=== PATIENT | male | born 1995 | race Caucasian/White ===

== ENCOUNTER → 2016-08-03 | Outpatient (CLI) | payer OTHER ==
--- NOTE | 2016-08-03 16:05 | KCIC ---
PROCEDURE Thyroid ultrasound. HISTORY Thyroid nodule. COMPARISON None. TECHNIQUE Real-time ultrasound imaging of the thyroid gland is performed. FINDINGS All measurements in length, AP, and transverse dimensions, respectively. The right thyroid lobe measures 6.5 x 2.2 x 2.1 cm. There is a complex hypoechoic nodule in the upper right thyroid lobe that has lobular margins. Internally there are components of intermediate echogenicity and hyper echogenicity. Color Doppler demonstrates there is internal vascularity. The nodule measures 19 x 10 x 13 millimeters. The left thyroid lobe measures 4.4 x 1.3 x 2.2 cm. There is a 3 millimeter cyst or hypoechoic nodule in the inferior left thyroid lobe. The isthmus measures 3 millimeters and is homogeneous. IMPRESSION Complex hypoechoic solid nodule in the upper right thyroid lobe with internal vascularity. Recommend further evaluation with ultrasound-guided FNA. General recommendations for nodules 1 centimeter or greater in largest diameter: Strongly consider FNA for: - A nodule 1 cm or more in largest diameter if microcalcifications are present. - A nodule 1.5 cm or more in largest diameter if the nodule is almost entirely solid or if coarse calcifications are present. - A nodule 2 cm or more in largest diameter if the nodule is mixed solid and cystic, or is almost entirely cystic with a solid mural nodule, or has had substantial growth since prior ultrasound studies. [facility] [employer] Consensus Conference Statement, April 2005, volume 237, Issue 3. Electronically signed by: Eduar Tijerina MD (Aug 03, 2016 16:04:01)
== END | disposition home or self-care (01) ==
LOC: KCIC US 14:56
PROVIDERS: ATTEND Nurse Practitioner Family
DX: E04.1 Nontoxic single thyroid nodule (principal)
CPT/HCPCS: 76536

== ENCOUNTER → 2016-08-24 | Outpatient (CLI) | payer OTHER ==
[~2016-08-24] VITALS: Ht 190.5 cm; Wt 88.5 kg
[~2016-08-24] MED LIST: CETI10TA22 PO
[2016-08-24 14:24] VITALS: BP 132/54
--- NOTE | 2016-08-24 16:14 | RAD ---
EXAM: Sonographic guided thyroid fine-needle aspiration. HISTORY: 21-year-old male presents for sonographic guided fine-needle aspiration of a 1.9 cm mixed solid and cystic lesion within the right thyroid lobe demonstrated on a sonogram dated 08/03/2016. TECHNIQUE: The risks of the procedure discussed with the patient and written] consent was obtained. A timeout was performed. Sonographic imaging of the right thyroid lobe was performed, this reading the lesion of concern. The skin overlying this region was sterilely prepped, draped and infiltrated with 1% lidocaine. Multiple passes were made into the lesion with sonographic guidance. The aspirate was submitted to the department of pathology for analysis. Minimal compression was maintained over the biopsy site until hemostasis was achieved. A sterile bandage was placed. The patient tolerated the procedure without difficulty. IMPRESSION: Sonographic guided fine needle aspiration of a right thyroid lesion. Please refer to the separate report by the department of pathology for biopsy findings.
--- NOTE | 2016-09-01 11:32 | PATHOLOGY ---
CYTOPATHOLOGY REPORT CLINICAL HISTORY: Right thyroid nodule. SPECIMEN(S) RECEIVED: A.Fine needle aspiration, Right thyroid nodule FINAL DIAGNOSIS: Right thyroid nodule fine needle aspiration, smears and cell block: - Unsatisfactory specimen due to lack of thyroid follicular epithelial cells. Note: According to "The [place] System for Reporting Thyroid Cytopathology" the minimum requirement is five or six groups of thyroid follicular cells with each group composed of at least 10 cells. COMMENT: The smears reveal only a few histiocytes and inflammatory cells within a proteinaceous background. The specimen is unsatisfactory for examination due to a lack of thyroid follicular epithelial cells. (JPM:; d/t: 09/01/16) PATHOLOGIST: Alvion Daniel M.D. REPORT ELECTRONICALLY SIGNED BY: Alvino Daniel M.D. DATE/TIME: 09/01/2016 11:30 GROSS PATHOLOGY: Fine needle aspiration, Right thyroid nodule: The specimen is labeled "Darwin Lord" and consists of two fixed slides, two air dried slides, two H and E slides. Thirty mL of clear colorless fluid in CytoLyt from the needle rinse is also submitted and one ThinPrep slide and a cell block were prepared from this material. (clt 08.25.2016) Also received is the RNARetain vial which will be held for molecular studies if needed. INSURANCE SPECIALIST(S): MICHELL Ghosh([facility]) INITIAL CPT CODE(S): A; 80962, 26969 Professional services performed [place] [address] Technical services performed by [facility] at [address] [place] [address], [address] [address]. PATIENT: DARWIN LORD /AGE: 801/08/1995 (Age: 21) SEX: M PATIENT #: [id number] ALT CASE #: SPECIMEN COLLECTION DATE: 08/24/2016 SPECIMEN RECEIVED DATE: 08/25/[address], [address] [place] [address] PHONE: [phone] DIRECTOR: Andrew Moore M.D. * * * END OF REPORT * * *
== END | disposition home or self-care (01) ==
LOC: US 13:30
PROVIDERS: ATTEND Nurse Practitioner Family
DX: E04.1 Nontoxic single thyroid nodule (principal); J44.9 Chronic obstructive pulmonary disease, unspecified; J45.909 Unspecified asthma, uncomplicated
CPT/HCPCS: 60300; 76942; 88173; 88305